=== PATIENT | female | born 1950 | race Caucasian/White ===

== ENCOUNTER → 2023-01-15 | Outpatient (CLI) | payer OTHER, MEDICAID ==
[~2023-01-15] MED LIST: ALLOPURINOL100 MG PO; ASPIR 8181 MG PO; CIPROFLOXACIN500 MG PO; COLCRYS0.6 MG PO; GLYBURIDE5 MG PO; INDOCIN25 MG PO; LANTUS100 U/ML SC; LISINOPRIL HCTZ1 TA1 PO; LISINOPRIL20 MG PO; MEDROL DOSEPAK4 MG PO; METFORMIN1000 MG PO; METOPROLOL SR25 MG PO; NAPROXEN500 MG PO; PRAVACHOL20 MG PO; PRILOSEC40 MG PO; RANITIDINE150 MG PO; ROBITUSSIN DM120 ML PO; ULTRAM50 MG PO; VICODIN 5/500 505 MG PO; ZITHROMAX Z PA250 MG PO
== END | disposition home or self-care (01) ==
LOC: US 07:19
PROVIDERS: ATTEND Internal Medicine Nephrology
DX: K74.60 Unspecified cirrhosis of liver (principal); R16.2 Hepatomegaly with splenomegaly, not elsewhere classified; R18.8 Other ascites; N18.30 Chronic kidney disease, stage 3 unspecified

== ENCOUNTER → 2023-02-26 | Outpatient (CLI) | payer OTHER, MEDICAID ==
[2023-02-26 14:33] LABS: MANUAL DIFF REFLEX YES
[2023-02-26 14:54] LABS: TOTAL PROTEIN 5.6 gm/dL (6.0-8.0)
[2023-02-26 15:37] LABS: HEMATOCRIT 28.5 % (37.0-47.0); MEAN CELL VOLUME 101.4 fl (81.0-99.0); MEAN CORPUSCULAR HGB CONC 31.6 g/dl (33.0-37.0); RED BLOOD COUNT 2.81 10*6/uL (4.10-5.10)
[2023-02-26 15:38] LABS: EOS % 0.1 % (1.0-4.0); LYMPH % 0.8 % (27.0-41.0); MEAN PLATELET VOLUME 12.6 fl (9.6-12.3); MONO % 0.3 % (3.0-9.0); NEUT % 2.8 % (47.0-73.0); PLATELET COUNT AUTOMATED 121 10*3/uL (130-400)
[2023-02-26 15:39] LABS: BASOPHILS 1 % (0-1); TOTAL CELLS COUNTED 100 #CELLS
[2023-02-26 15:40] LABS: PLATELET SUFFICIENCY LOW (NORMAL)
== END | disposition home or self-care (01) ==
LOC: LAB 13:38
PROVIDERS: ATTEND Nurse Practitioner Family
DX: E11.65 Type 2 diabetes mellitus with hyperglycemia (principal); R79.89 Other specified abnormal findings of blood chemistry; R53.81 Other malaise

== ENCOUNTER → 2023-03-27 | Outpatient (CLI) | payer OTHER, MEDICAID ==
[2023-03-27 15:32] LABS: BILIRUBIN Negative (Negative); BLOOD Negative (Negative); CLARITY Clear (Clear); COLOR Yellow (Yellow); GLUCOSE Negative (Negative); KETONE Negative (Negative); LEUKO ESTERASE 1+ (Negative); NITRITE Negative (Negative); SPECIFIC GRAVITY 1.015 (1.001-1.030)
[2023-03-27 15:33] LABS: BASO % 0.5 % (0.0-1.0); EOS # 0.1 10*3/uL (0.0-0.4); EOS % 3.7 % (1.0-4.0); HEMATOCRIT 28.6 % (37.0-47.0); LYMPH # 0.7 10*3/uL (1.3-4.4); LYMPH % 17.1 % (27.0-41.0); MEAN CELL VOLUME 101.4 fl (81.0-99.0); MEAN CORPUSCULAR HGB 31.6 pg (27.0-31.0); MEAN CORPUSCULAR HGB CONC 31.1 g/dl (33.0-37.0); MEAN PLATELET VOLUME 11.6 fl (9.6-12.3); MONO # 0.3 10*3/uL (0.1-1.0); MONO % 6.6 % (3.0-9.0); NEUT # 2.7 10*3/uL (2.3-7.9); NEUT % 70.8 % (47.0-73.0); PLATELET COUNT AUTOMATED 120 10*3/uL (130-400); RED BLOOD COUNT 2.82 10*6/uL (4.10-5.10); WHITE BLOOD COUNT 3.8 10*3/uL (4.8-10.8)
[2023-03-27 15:40] LABS: URINE CREATININE RANDOM 97.36 mg/dL
[2023-03-27 15:45] LABS: BACTERIA 2+; MUCOUS 1+; WBC 16-20 wbc/hpf (0-5)
[2023-03-27 15:56] LABS: POTASSIUM 4.3 mmol/L (3.4-5.1)
[2023-03-27 15:59] LABS: VITAMIN D, 25-HYDROXY 24.7 ng/mL (30-100)
== END | disposition home or self-care (01) ==
LOC: LAB 15:06
PROVIDERS: ATTEND Internal Medicine Nephrology
DX: E11.22 Type 2 diabetes mellitus with diabetic chronic kidney disease (principal); N18.30 Chronic kidney disease, stage 3 unspecified; N25.81 Secondary hyperparathyroidism of renal origin; D63.1 Anemia in chronic kidney disease; Z79.899 Other long term (current) drug therapy

== ENCOUNTER → 2023-07-24 | Outpatient (CLI) | payer OTHER, MEDICAID ==
[2023-07-24 09:55] LABS: BILIRUBIN Negative (Negative); BLOOD Negative (Negative); CLARITY Clear (Clear); COLOR Yellow (Yellow); GLUCOSE 2+ (Negative); KETONE Negative (Negative); LEUKO ESTERASE Negative (Negative); NITRITE Negative (Negative); PH 5.5 (4.5-8.0); SPECIFIC GRAVITY 1.015 (1.001-1.030); UROBILINOGEN 0.2 E.U./dl (0.0-1.0)
[2023-07-24 09:56] LABS: BASO % 0.8 % (0.0-1.0); EOS # 0.1 10*3/uL (0.0-0.4); EOS % 2.9 % (1.0-4.0); HEMATOCRIT 32.1 % (37.0-47.0); LYMPH # 0.5 10*3/uL (1.3-4.4); LYMPH % 13.9 % (27.0-41.0); MEAN CORPUSCULAR HGB CONC 30.5 g/dl (33.0-37.0); MEAN PLATELET VOLUME 11.5 fl (9.6-12.3); MONO # 0.3 10*3/uL (0.1-1.0); MONO % 7.9 % (3.0-9.0); NEUT # 2.8 10*3/uL (2.3-7.9); PLATELET COUNT AUTOMATED 117 10*3/uL (130-400); RED BLOOD COUNT 3.38 10*6/uL (4.10-5.10); WHITE BLOOD COUNT 3.8 10*3/uL (4.8-10.8)
[2023-07-24 10:02] LABS: BACTERIA 2+; HYALINE CAST 0-2; YEAST 1+
[2023-07-24 10:03] LABS: URINE CREATININE RANDOM 44.36 mg/dL
[2023-07-24 10:24] LABS: POTASSIUM 4.2 mmol/L (3.4-5.1)
[2023-07-24 10:38] LABS: VITAMIN D, 25-HYDROXY 86.5 ng/mL (30-100)
== END | disposition home or self-care (01) ==
LOC: LAB 09:18
PROVIDERS: ATTEND Nurse Practitioner Family
DX: E11.22 Type 2 diabetes mellitus with diabetic chronic kidney disease (principal); N18.30 Chronic kidney disease, stage 3 unspecified

== ENCOUNTER 2023-08-08 19:41 | Emergency (ER) | payer OTHER, MEDICAID ==
[~2023-08-08] VITALS: Ht 152.4 cm; Wt 68.5 kg
[~2023-08-08 19:41] MED LIST changes: +LANTUS SOL100 UNIT/1 SC; -LANTUS100 U/ML SC
[2023-08-08] MEDS ORDERED: ALDACTONE100 MG PO (20:45)
[2023-08-08] MEDS ORDERED: LASIX40 MG PO (20:45)
[2023-08-08] MEDS ORDERED: CARVEDILOL6.25 MG PO (20:45)
[2023-08-08] MEDS ORDERED: XIFAXAN550 MG PO (20:45)
[2023-08-08 20:55] LABS: BASO % 0.5 % (0.0-1.0); EOS # 0.1 10*3/uL (0.0-0.4); EOS % 1.9 % (1.0-4.0); HEMATOCRIT 31.9 % (37.0-47.0); LYMPH # 0.5 10*3/uL (1.3-4.4); LYMPH % 13.6 % (27.0-41.0); MEAN CELL VOLUME 93.8 fl (81.0-99.0); MEAN CORPUSCULAR HGB 29.1 pg (27.0-31.0); MEAN PLATELET VOLUME 12.8 fl (9.6-12.3); MONO # 0.3 10*3/uL (0.1-1.0); MONO % 8.2 % (3.0-9.0); NEUT # 2.8 10*3/uL (2.3-7.9); NEUT % 75.5 % (47.0-73.0); PLATELET COUNT AUTOMATED 128 10*3/uL (130-400); RED CELL DISTRI WIDTH 14.7 % (0-14.5); WHITE BLOOD COUNT 3.8 10*3/uL (4.8-10.8)
[2023-08-08 21:06] LABS: ACT PARTIAL THROMBO TIME 20.8 SECONDS (20.0-32.1)
[2023-08-08 21:23] LABS: POTASSIUM 4.7 mmol/L (3.4-5.1); TOTAL PROTEIN 7.7 gm/dL (6.0-8.0)
[2023-08-08 23:47] LABS: BILIRUBIN Negative (Negative); BLOOD Negative (Negative); CLARITY Clear (Clear); COLOR Yellow (Yellow); GLUCOSE 3+ (Negative); KETONE Negative (Negative); LEUKO ESTERASE Negative (Negative); NITRITE Negative (Negative); PH 5.5 (4.5-8.0); UROBILINOGEN 0.2 E.U./dl (0.0-1.0)
[2023-08-09 00:08] LABS: EPITHELIAL CELLS 21-30
[2023-08-09 00:09] LABS: BACTERIA TRACE; YEAST TRACE
== END 2023-08-08 23:57 | disposition home or self-care (01) ==
LOC: ED 19:41
PROVIDERS: Internal Medicine
DX: E11.65 Type 2 diabetes mellitus with hyperglycemia (principal); E78.00 Pure hypercholesterolemia, unspecified; K21.9 Gastro-esophageal reflux disease without esophagitis; I10 Essential (primary) hypertension; M10.9 Gout, unspecified; Z88.0 Allergy status to penicillin; Z88.5 Allergy status to narcotic agent; Z88.8 Allergy status to other drugs, medicaments and biological substances; Z90.710 Acquired absence of both cervix and uterus; Z98.890 Other specified postprocedural states

== ENCOUNTER → 2023-08-26 | Outpatient (CLI) | payer OTHER, MEDICAID ==
[~2023-08-26] MED LIST changes: +ALDACTONE100 MG PO; +CARVEDILOL6.25 MG PO; +LASIX40 MG PO; +XIFAXAN550 MG PO
[2023-08-26 11:23] LABS: URINE CREATININE RANDOM 47.26 mg/dL
[2023-08-26 11:30] LABS: BILIRUBIN Negative (Negative); BLOOD Negative (Negative); CLARITY Clear (Clear); COLOR Yellow (Yellow); GLUCOSE 3+ (Negative); KETONE Negative (Negative); LEUKO ESTERASE Negative (Negative); NITRITE Negative (Negative); PH 5.5 (4.5-8.0); SPECIFIC GRAVITY 1.015 (1.001-1.030); UROBILINOGEN 0.2 E.U./dl (0.0-1.0)
[2023-08-26 11:35] LABS: BASO % 0.8 % (0.0-1.0); EOS # 0.1 10*3/uL (0.0-0.4); EOS % 3.6 % (1.0-4.0); HEMATOCRIT 32.1 % (37.0-47.0); LYMPH # 0.6 10*3/uL (1.3-4.4); LYMPH % 16.2 % (27.0-41.0); MEAN CELL VOLUME 94.4 fl (81.0-99.0); MEAN CORPUSCULAR HGB 28.8 pg (27.0-31.0); MEAN CORPUSCULAR HGB CONC 30.5 g/dl (33.0-37.0); MEAN PLATELET VOLUME 12.8 fl (9.6-12.3); MONO # 0.3 10*3/uL (0.1-1.0); MONO % 7.8 % (3.0-9.0); NEUT # 2.6 10*3/uL (2.3-7.9); NEUT % 71.3 % (47.0-73.0); PLATELET COUNT AUTOMATED 71 10*3/uL (130-400); RED CELL DISTRI WIDTH 14.4 % (0-14.5); WHITE BLOOD COUNT 3.6 10*3/uL (4.8-10.8)
[2023-08-26 11:39] LABS: BACTERIA 1+; MUCOUS TRACE; YEAST 2+
[2023-08-26 11:48] LABS: POTASSIUM 4.8 mmol/L (3.4-5.1)
[2023-08-26 12:05] LABS: VITAMIN D, 25-HYDROXY 78.1 ng/mL (30-100)
== END | disposition home or self-care (01) ==
LOC: LAB 10:31
PROVIDERS: ATTEND Internal Medicine Nephrology
DX: E11.9 Type 2 diabetes mellitus without complications (principal); N17.9 Acute kidney failure, unspecified; E03.9 Hypothyroidism, unspecified

== ENCOUNTER → 2023-09-16 | Outpatient (CLI) | payer OTHER, MEDICAID ==
[2023-09-16 07:23] LABS: BASO % 0.5 % (0.0-1.0); EOS # 0.2 10*3/uL (0.0-0.4); EOS % 3.8 % (1.0-4.0); HEMATOCRIT 33.5 % (37.0-47.0); LYMPH # 0.6 10*3/uL (1.3-4.4); LYMPH % 15.1 % (27.0-41.0); MEAN CELL VOLUME 93.3 fl (81.0-99.0); MEAN PLATELET VOLUME 10.9 fl (9.6-12.3); MONO # 0.3 10*3/uL (0.1-1.0); MONO % 6.8 % (3.0-9.0); NEUT # 3.1 10*3/uL (2.3-7.9); NEUT % 73.6 % (47.0-73.0); PLATELET COUNT AUTOMATED 96 10*3/uL (130-400); RED BLOOD COUNT 3.59 10*6/uL (4.10-5.10); RED CELL DISTRI WIDTH 15.1 % (0-14.5); WHITE BLOOD COUNT 4.3 10*3/uL (4.8-10.8)
[2023-09-16 08:00] LABS: POTASSIUM 4.6 mmol/L (3.4-5.1); TOTAL PROTEIN 7.2 gm/dL (6.0-8.0)
== END | disposition home or self-care (01) ==
LOC: LAB 07:03
PROVIDERS: ATTEND Nurse Practitioner Family
DX: E11.65 Type 2 diabetes mellitus with hyperglycemia (principal); Z23 Encounter for immunization; E66.9 Obesity, unspecified; K76.0 Fatty (change of) liver, not elsewhere classified; Z79.4 Long term (current) use of insulin

== ENCOUNTER → 2023-09-25 | Outpatient (CLI) | payer OTHER, MEDICAID ==
[2023-09-25 15:10] LABS: EOS # 0.1 10*3/uL (0.0-0.4); EOS % 3.6 % (1.0-4.0); HEMATOCRIT 33.1 % (37.0-47.0); LYMPH # 0.7 10*3/uL (1.3-4.4); LYMPH % 17.8 % (27.0-41.0); MEAN CELL VOLUME 95.9 fl (81.0-99.0); MEAN CORPUSCULAR HGB CONC 30.2 g/dl (33.0-37.0); MEAN PLATELET VOLUME 10.2 fl (9.6-12.3); MONO # 0.4 10*3/uL (0.1-1.0); MONO % 9.4 % (3.0-9.0); NEUT # 2.7 10*3/uL (2.3-7.9); NEUT % 67.9 % (47.0-73.0); PLATELET COUNT AUTOMATED 97 10*3/uL (130-400); RED BLOOD COUNT 3.45 10*6/uL (4.10-5.10); RED CELL DISTRI WIDTH 15.8 % (0-14.5); WHITE BLOOD COUNT 3.9 10*3/uL (4.8-10.8)
[2023-09-25 15:33] LABS: POTASSIUM 5.3 mmol/L (3.4-5.1); TOTAL PROTEIN 7.1 gm/dL (6.0-8.0); URIC ACID 10.8 mg/dL (3.1-7.8)
== END ==
LOC: LAB 14:48
PROVIDERS: ATTEND Nurse Practitioner Family
DX: E11.65 Type 2 diabetes mellitus with hyperglycemia (principal); E66.9 Obesity, unspecified; K76.0 Fatty (change of) liver, not elsewhere classified; Z74.9 Problem related to care provider dependency, unspecified; Z87.39 Personal history of other diseases of the musculoskeletal system and connective tissue

== ENCOUNTER → 2023-10-21 | Outpatient (CLI) | payer OTHER, MEDICAID | END | disposition home or self-care (01) | LOC: LAB 11:32 | PROVIDERS: ATTEND Nurse Practitioner Family | DX: E11.65 Type 2 diabetes mellitus with hyperglycemia (principal); K76.0 Fatty (change of) liver, not elsewhere classified; M10.9 Gout, unspecified ==

== ENCOUNTER → 2023-11-13 | Outpatient (CLI) | payer OTHER, MEDICAID ==
[2023-11-13 12:25] LABS: BASO % 0.5 % (0.0-1.0); EOS # 0.1 10*3/uL (0.0-0.4); EOS % 2.2 % (1.0-4.0); HEMATOCRIT 32.8 % (37.0-47.0); LYMPH # 0.7 10*3/uL (1.3-4.4); LYMPH % 20.1 % (27.0-41.0); MEAN CELL VOLUME 99.1 fl (81.0-99.0); MEAN CORPUSCULAR HGB 31.1 pg (27.0-31.0); MEAN CORPUSCULAR HGB CONC 31.4 g/dl (33.0-37.0); MONO # 0.3 10*3/uL (0.1-1.0); MONO % 8.4 % (3.0-9.0); NEUT # 2.5 10*3/uL (2.3-7.9); NEUT % 68.5 % (47.0-73.0); PLATELET COUNT AUTOMATED 79 10*3/uL (130-400); RED BLOOD COUNT 3.31 10*6/uL (4.10-5.10); RED CELL DISTRI WIDTH 17.1 % (0-14.5); WHITE BLOOD COUNT 3.7 10*3/uL (4.8-10.8)
[2023-11-13 12:48] LABS: POTASSIUM 5.5 mmol/L (3.4-5.1)
[2023-11-13 12:50] LABS: URINE CREATININE RANDOM 51.67 mg/dL
[2023-11-13 12:56] LABS: VITAMIN D, 25-HYDROXY 62.3 ng/mL (30-100)
[2023-11-13 14:33] LABS: BILIRUBIN Negative (Negative); BLOOD Negative (Negative); CLARITY Clear (Clear); COLOR Yellow (Yellow); GLUCOSE Negative (Negative); KETONE Negative (Negative); NITRITE Negative (Negative); UROBILINOGEN 0.2 E.U./dl (0.0-1.0)
[2023-11-13 14:34] LABS: LEUKO ESTERASE Negative (Negative)
[2023-11-13 15:01] LABS: BACTERIA 1+; HYALINE CAST 0-2; YEAST 1+
== END | disposition home or self-care (01) ==
LOC: RAD 11:32
PROVIDERS: ATTEND Nurse Practitioner Family
DX: E11.22 Type 2 diabetes mellitus with diabetic chronic kidney disease (principal); N18.30 Chronic kidney disease, stage 3 unspecified; E55.9 Vitamin D deficiency, unspecified; D63.1 Anemia in chronic kidney disease; N25.81 Secondary hyperparathyroidism of renal origin; E11.65 Type 2 diabetes mellitus with hyperglycemia; R07.89 Other chest pain; E66.9 Obesity, unspecified; K74.60 Unspecified cirrhosis of liver; R91.8 Other nonspecific abnormal finding of lung field

== ENCOUNTER → 2024-02-27 | Outpatient (CLI) | payer OTHER, MEDICAID ==
[~2024-02-27] MED LIST changes: +ALDACTONE25 M1 PO; +ALLOPURINOL200 MG PO; +NOVOLIN R100 UNIT/1 SQ; +VITAMIN D350 MCG PO
[2024-02-27 11:06] LABS: HEMATOCRIT 36.6 % (37.0-47.0); MEAN CELL VOLUME 108.3 fl (81.0-99.0); MEAN CORPUSCULAR HGB 34.6 pg (27.0-31.0); MEAN PLATELET VOLUME 11.3 fl (9.6-12.3); PLATELET COUNT AUTOMATED 72 10*3/uL (130-400); RED BLOOD COUNT 3.38 10*6/uL (4.10-5.10); RED CELL DISTRI WIDTH 15.6 % (0-14.5); WHITE BLOOD COUNT 3.4 10*3/uL (4.8-10.8)
[2024-02-27 11:08] LABS: MANUAL DIFF REFLEX YES
[2024-02-27 11:16] LABS: URINE CREATININE RANDOM 42.5 mg/dL
[2024-02-27 11:18] LABS: BILIRUBIN Negative (Negative); BLOOD Negative (Negative); CLARITY Clear (Clear); COLOR Yellow (Yellow); GLUCOSE Negative (Negative); KETONE Negative (Negative); LEUKO ESTERASE Trace (Negative); NITRITE Negative (Negative)
[2024-02-27 11:26] LABS: BURR CELLS FEW; OVALOCYTES FEW; PLATELET SUFFICIENCY LOW (NORMAL); POLYCHROMASIA SLIGHT; ROULEAUX SLIGHT; TOTAL CELLS COUNTED 100 #CELLS
[2024-02-27 11:27] LABS: POTASSIUM 5.8 mmol/L (3.4-5.1)
[2024-02-27 11:51] LABS: EPITHELIAL CELLS 41-50
[2024-02-27 12:01] LABS: VITAMIN D, 25-HYDROXY 52.6 ng/mL (30-100)
== END | disposition home or self-care (01) ==
LOC: LAB 10:35
PROVIDERS: ATTEND Nurse Practitioner Family
DX: N18.30 Chronic kidney disease, stage 3 unspecified (principal); E55.9 Vitamin D deficiency, unspecified; D63.1 Anemia in chronic kidney disease; N25.81 Secondary hyperparathyroidism of renal origin

== ENCOUNTER → 2024-04-16 | Outpatient (CLI) | payer OTHER, MEDICAID ==
[~2024-04-16] MED LIST changes: +Regadenoson 0.4 MG/5 ML SYR IV ONE; +Technetium Tc 99M Tetrofosmi 0.23 MG KIT IJ SCH; +WOMEN'S DAILY1 EAC3 PO
[2024-04-16 07:20] LABS: MEAN CELL VOLUME 109.8 fl (81.0-99.0); MEAN CORPUSCULAR HGB 35.4 pg (27.0-31.0); MEAN CORPUSCULAR HGB CONC 32.2 g/dl (33.0-37.0); MEAN PLATELET VOLUME 10.7 fl (9.6-12.3); PLATELET COUNT AUTOMATED 80 10*3/uL (130-400); RED BLOOD COUNT 3.28 10*6/uL (4.10-5.10); RED CELL DISTRI WIDTH 15.3 % (0-14.5); WHITE BLOOD COUNT 4.2 10*3/uL (4.8-10.8)
[2024-04-16 07:21] LABS: BILIRUBIN Negative (Negative); BLOOD Negative (Negative); CLARITY Clear (Clear); COLOR Yellow (Yellow); GLUCOSE Negative (Negative); KETONE Negative (Negative); LEUKO ESTERASE Trace (Negative); NITRITE Negative (Negative); UROBILINOGEN 0.2 E.U./dl (0.0-1.0)
[2024-04-16 07:27] LABS: MANUAL DIFF REFLEX YES
[2024-04-16 07:28] LABS: URINE CREATININE RANDOM 53.86 mg/dL
[2024-04-16 07:45] LABS: POTASSIUM 5.9 mmol/L (3.4-5.1)
[2024-04-16 07:53] LABS: BASOPHILS 2 % (0-1); PLATELET SUFFICIENCY LOW (NORMAL); POLYCHROMASIA SLIGHT; TOTAL CELLS COUNTED 100 #CELLS
[2024-04-16 07:54] LABS: OVALOCYTES FEW
[2024-04-16 10:01] LABS: BACTERIA 2+; YEAST 2+
== END | disposition home or self-care (01) ==
LOC: CARD 01:54 → LAB 01:54 → CARD 07:30
PROVIDERS: Nurse Practitioner Family; ATTEND Internal Medicine Cardiovascular Disease
DX: R07.9 Chest pain, unspecified (principal); E11.22 Type 2 diabetes mellitus with diabetic chronic kidney disease; Z79.4 Long term (current) use of insulin; N18.9 Chronic kidney disease, unspecified

== ENCOUNTER → 2024-04-20 | Outpatient (CLI) | payer OTHER, MEDICAID ==
[~2024-04-20] MED LIST changes: -Regadenoson 0.4 MG/5 ML SYR IV ONE; -Technetium Tc 99M Tetrofosmi 0.23 MG KIT IJ SCH
== END | disposition home or self-care (01) ==
LOC: CARD 10:17
PROVIDERS: ATTEND Internal Medicine Cardiovascular Disease
DX: I08.8 Other rheumatic multiple valve diseases (principal); I12.9 Hypertensive chronic kidney disease with stage 1 through stage 4 chronic kidney disease, or unspecified chronic kidney disease; E11.22 Type 2 diabetes mellitus with diabetic chronic kidney disease; N18.9 Chronic kidney disease, unspecified; R07.89 Other chest pain; R60.0 Localized edema

== ENCOUNTER → 2024-05-19 | Outpatient (CLI) | payer OTHER, MEDICAID ==
[2024-05-19 11:11] LABS: POTASSIUM 4.4 mmol/L (3.4-5.1)
[2024-05-19 12:53] LABS: BILIRUBIN Negative (Negative); BLOOD Negative (Negative); CLARITY Clear (Clear); COLOR Yellow (Yellow); GLUCOSE Negative (Negative); KETONE Negative (Negative); LEUKO ESTERASE 1+ (Negative); NITRITE Negative (Negative); SPECIFIC GRAVITY 1.015 (1.001-1.030); UROBILINOGEN 0.2 E.U./dl (0.0-1.0)
[2024-05-19 13:00] LABS: URINE CREATININE RANDOM 77.95 mg/dL
[2024-05-19 13:39] LABS: RBC 0-2 rbc/hpf (0-2); YEAST TRACE
== END | disposition home or self-care (01) ==
LOC: LAB 10:10
PROVIDERS: ATTEND Nurse Practitioner Family
DX: N18.30 Chronic kidney disease, stage 3 unspecified (principal); Z79.899 Other long term (current) drug therapy

== ENCOUNTER → 2024-05-26 | Outpatient (CLI) | payer OTHER, MEDICAID ==
[2024-05-26 12:36] LABS: BILIRUBIN Negative (Negative); BLOOD Negative (Negative); CLARITY Clear (Clear); COLOR Yellow (Yellow); GLUCOSE 2+ (Negative); KETONE Negative (Negative); LEUKO ESTERASE Trace (Negative); NITRITE Negative (Negative); UROBILINOGEN 0.2 E.U./dl (0.0-1.0)
[2024-05-26 12:37] LABS: URINE CREATININE RANDOM 34.26 mg/dL
[2024-05-26 12:46] LABS: BACTERIA TRACE; YEAST TRACE
[2024-05-26 13:03] LABS: POTASSIUM 4.5 mmol/L (3.4-5.1)
== END | disposition home or self-care (01) ==
LOC: LAB 12:00
PROVIDERS: ATTEND Nurse Practitioner Family
DX: N18.30 Chronic kidney disease, stage 3 unspecified (principal)

== ENCOUNTER → 2024-07-09 | Outpatient (CLI) | payer OTHER, MEDICAID ==
[~2024-07-09] MED LIST changes: +OZEMPIC0.25 MG/03 SQ
[2024-07-09 10:16] LABS: POTASSIUM 4.5 mmol/L (3.4-5.1); TOTAL PROTEIN 6.6 gm/dL (6.0-8.0)
== END | disposition home or self-care (01) ==
LOC: LAB 09:05
PROVIDERS: ATTEND Internal Medicine Endocrinology, Diabetes & Metabolism
DX: E11.65 Type 2 diabetes mellitus with hyperglycemia (principal)

== ENCOUNTER → 2024-09-08 | Outpatient (CLI) | payer OTHER, MEDICAID ==
[2024-09-08 17:23] LABS: BASO % 0.3 % (0.0-1.0); EOS # 0.1 10*3/uL (0.0-0.4); EOS % 4.4 % (1.0-4.0); HEMATOCRIT 33.9 % (37.0-47.0); MEAN CELL VOLUME 101.8 fl (81.0-99.0); MEAN CORPUSCULAR HGB CONC 32.4 g/dl (33.0-37.0); MEAN PLATELET VOLUME 12.7 fl (9.6-12.3); MONO # 0.2 10*3/uL (0.1-1.0); MONO % 8.1 % (3.0-9.0); NEUT # 2.1 10*3/uL (2.3-7.9); NEUT % 70.8 % (47.0-73.0); PLATELET COUNT AUTOMATED 70 10*3/uL (130-400); RED BLOOD COUNT 3.33 10*6/uL (4.10-5.10); RED CELL DISTRI WIDTH 14.2 % (0-14.5)
[2024-09-08 17:24] LABS: POTASSIUM 4.2 mmol/L (3.4-5.1); TOTAL PROTEIN 6.8 gm/dL (6.0-8.0)
== END | disposition home or self-care (01) ==
LOC: ZRHCWE 16:50
PROVIDERS: ATTEND Nurse Practitioner Family
DX: I10 Essential (primary) hypertension (principal); E11.65 Type 2 diabetes mellitus with hyperglycemia; K76.0 Fatty (change of) liver, not elsewhere classified

== ENCOUNTER → 2024-09-14 | Outpatient (CLI) | payer OTHER, MEDICAID ==
[2024-09-14 12:10] LABS: BASO % 0.6 % (0.0-1.0); EOS # 0.1 10*3/uL (0.0-0.4); EOS % 4.3 % (1.0-4.0); HEMATOCRIT 36.2 % (37.0-47.0); MEAN CELL VOLUME 104.3 fl (81.0-99.0); MEAN CORPUSCULAR HGB 32.6 pg (27.0-31.0); MEAN CORPUSCULAR HGB CONC 31.2 g/dl (33.0-37.0); MEAN PLATELET VOLUME 11.4 fl (9.6-12.3); MONO # 0.3 10*3/uL (0.1-1.0); MONO % 7.7 % (3.0-9.0); NEUT # 2.2 10*3/uL (2.3-7.9); NEUT % 68.8 % (47.0-73.0); PLATELET COUNT AUTOMATED 73 10*3/uL (130-400); RED BLOOD COUNT 3.47 10*6/uL (4.10-5.10); RED CELL DISTRI WIDTH 14.4 % (0-14.5); WHITE BLOOD COUNT 3.2 10*3/uL (4.8-10.8)
[2024-09-14 12:32] LABS: POTASSIUM 3.9 mmol/L (3.4-5.1)
[2024-09-14 12:40] LABS: VITAMIN D, 25-HYDROXY 48.7 ng/mL (30-100)
[2024-09-14 13:45] LABS: BILIRUBIN Negative (Negative); BLOOD Negative (Negative); CLARITY Clear (Clear); COLOR Yellow (Yellow); GLUCOSE Negative (Negative); KETONE Negative (Negative); LEUKO ESTERASE 2+ (Negative); NITRITE Negative (Negative); PH 5.5 (4.5-8.0); SPECIFIC GRAVITY 1.015 (1.001-1.030)
[2024-09-14 13:54] LABS: BACTERIA 2+; HYALINE CAST 0-2
[2024-09-14 13:55] LABS: YEAST 1+
== END | disposition home or self-care (01) ==
LOC: LAB 11:29
PROVIDERS: Nurse Practitioner Family; ATTEND Family Medicine
DX: E11.22 Type 2 diabetes mellitus with diabetic chronic kidney disease (principal); N18.30 Chronic kidney disease, stage 3 unspecified; E55.9 Vitamin D deficiency, unspecified; N25.81 Secondary hyperparathyroidism of renal origin; D63.1 Anemia in chronic kidney disease; Z79.899 Other long term (current) drug therapy

== ENCOUNTER → 2024-10-14 | Outpatient (CLI) | payer OTHER, MEDICAID ==
[2024-10-14 13:02] LABS: POTASSIUM 4.3 mmol/L (3.4-5.1); TOTAL PROTEIN 6.8 gm/dL (6.0-8.0)
== END | disposition home or self-care (01) ==
LOC: LAB 11:40
PROVIDERS: Student in an Organized Health Care Education/Training Program; ATTEND Family Medicine
DX: E11.65 Type 2 diabetes mellitus with hyperglycemia (principal)

== ENCOUNTER → 2025-01-11 | Outpatient (CLI) | payer OTHER, MEDICAID ==
[2025-01-11 09:51] LABS: POTASSIUM 3.9 mmol/L (3.4-5.1); TOTAL PROTEIN 6.1 gm/dL (6.0-8.0)
== END | disposition home or self-care (01) ==
LOC: LAB 08:36
PROVIDERS: Student in an Organized Health Care Education/Training Program; ATTEND Internal Medicine Endocrinology, Diabetes & Metabolism
DX: E11.65 Type 2 diabetes mellitus with hyperglycemia (principal)

== ENCOUNTER → 2025-01-14 | Outpatient (CLI) | payer OTHER, MEDICAID | END | disposition home or self-care (01) | LOC: RAD 13:59 | PROVIDERS: ATTEND Nurse Practitioner Family | DX: M75.81 Other shoulder lesions, right shoulder (principal); M25.511 Pain in right shoulder; Z00.00 Encounter for general adult medical examination without abnormal findings ==

== ENCOUNTER → 2025-02-01 | Outpatient (CLI) | payer OTHER, MEDICAID ==
[2025-02-01 10:23] LABS: BILIRUBIN Negative (Negative); BLOOD Negative (Negative); CLARITY Clear (Clear); COLOR Yellow (Yellow); GLUCOSE Negative (Negative); KETONE Negative (Negative); LEUKO ESTERASE Trace (Negative); NITRITE Negative (Negative); PH 5.5 (4.5-8.0); SPECIFIC GRAVITY 1.015 (1.001-1.030)
[2025-02-01 10:45] LABS: BASO % 0.5 % (0.0-1.0); EOS # 0.1 10*3/uL (0.0-0.4); EOS % 3.8 % (1.0-4.0); HEMATOCRIT 36.5 % (37.0-47.0); MEAN CELL VOLUME 101.7 fl (81.0-99.0); MEAN CORPUSCULAR HGB 33.1 pg (27.0-31.0); MEAN CORPUSCULAR HGB CONC 32.6 g/dl (33.0-37.0); MEAN PLATELET VOLUME 12.6 fl (9.6-12.3); MONO # 0.3 10*3/uL (0.1-1.0); MONO % 9.2 % (3.0-9.0); NEUT # 2.6 10*3/uL (2.3-7.9); PLATELET COUNT AUTOMATED 61 10*3/uL (130-400); RED BLOOD COUNT 3.59 10*6/uL (4.10-5.10); RED CELL DISTRI WIDTH 14.2 % (0-14.5); WHITE BLOOD COUNT 3.7 10*3/uL (4.8-10.8)
[2025-02-01 10:48] LABS: POTASSIUM 4.1 mmol/L (3.4-5.1)
[2025-02-01 11:24] LABS: VITAMIN D, 25-HYDROXY 35.8 ng/mL (30-100)
[2025-02-01 11:57] LABS: BACTERIA 1+; RBC 0-2 rbc/hpf (0-2)
== END | disposition home or self-care (01) ==
LOC: LAB 09:47
PROVIDERS: ATTEND Nurse Practitioner Family
DX: E11.22 Type 2 diabetes mellitus with diabetic chronic kidney disease (principal); N18.4 Chronic kidney disease, stage 4 (severe); E55.9 Vitamin D deficiency, unspecified; D63.1 Anemia in chronic kidney disease; N25.81 Secondary hyperparathyroidism of renal origin

== ENCOUNTER → 2025-04-16 | Outpatient (CLI) | payer OTHER, MEDICAID ==
[2025-04-16 07:51] LABS: BASO # 0.0 10*3/uL (0.0-0.1); BASO % 0.4 % (0.0-1.0); EOS # 0.1 10*3/uL (0.0-0.4); EOS % 3.7 % (1.0-4.0); MEAN CELL VOLUME 105.3 fl (81.0-99.0); MEAN CORPUSCULAR HGB 33.5 pg (27.0-31.0); MEAN PLATELET VOLUME 10.5 fl (9.6-12.3); MONO # 0.3 10*3/uL (0.1-1.0); MONO % 10.2 % (3.0-9.0); NEUT # 1.5 10*3/uL (2.3-7.9); NEUT % 60.5 % (47.0-73.0); NUCLEATED RED BLOOD CELL 0.0 % (0.0-0.0); NUCLEATED RED BLOOD CELL 0.0 10*3/uL (0.0-0.0); PLATELET COUNT AUTOMATED 56 10*3/uL (130-400); RED CELL DISTRI WIDTH 15.1 % (0-14.5)
[2025-04-16 08:52] LABS: BUN 35.0 mg/dl (9-23); SGPT/ALT 31.0 U/L (5-49)
== END | disposition home or self-care (01) ==
LOC: LAB 07:34
PROVIDERS: ATTEND Nurse Practitioner Family
DX: I12.9 Hypertensive chronic kidney disease with stage 1 through stage 4 chronic kidney disease, or unspecified chronic kidney disease (principal); N18.9 Chronic kidney disease, unspecified; E11.65 Type 2 diabetes mellitus with hyperglycemia; K76.0 Fatty (change of) liver, not elsewhere classified; D63.1 Anemia in chronic kidney disease

== ENCOUNTER → 2025-06-03 | Outpatient (CLI) | payer OTHER, MEDICAID ==
[2025-06-03 12:40] LABS: BILIRUBIN Negative (Negative); BLOOD Negative (Negative); CLARITY Clear (Clear); COLOR Yellow (Yellow); KETONE Negative (Negative); LEUKO ESTERASE Trace (Negative); NITRITE Negative (Negative); PH 5.5 (4.5-8.0); SPECIFIC GRAVITY 1.015 (1.001-1.030); UROBILINOGEN 0.2 E.U./dl (0.0-1.0)
[2025-06-03 12:42] LABS: BASO # 0.0 10*3/uL (0.0-0.1); BASO % 0.9 % (0.0-1.0); EOS # 0.1 10*3/uL (0.0-0.4); EOS % 4.2 % (1.0-4.0); MEAN CELL VOLUME 107.8 fl (81.0-99.0); MEAN CORPUSCULAR HGB 34.9 pg (27.0-31.0); MEAN PLATELET VOLUME 12.0 fl (9.6-12.3); MONO # 0.2 10*3/uL (0.1-1.0); MONO % 9.4 % (3.0-9.0); NEUT # 1.3 10*3/uL (2.3-7.9); NEUT % 60.6 % (47.0-73.0); NUCLEATED RED BLOOD CELL 0.0 % (0.0-0.0); NUCLEATED RED BLOOD CELL 0.0 10*3/uL (0.0-0.0); PLATELET COUNT AUTOMATED 51 10*3/uL (130-400); RED CELL DISTRI WIDTH 14.4 % (0-14.5)
[2025-06-03 13:04] LABS: BACTERIA 1+
[2025-06-03 14:01] LABS: BUN 33.0 mg/dl (9-23)
[2025-06-03 14:04] LABS: VITAMIN D, 25-HYDROXY 29.1 ng/mL (30-100)
== END | disposition home or self-care (01) ==
LOC: LAB 12:09
PROVIDERS: ATTEND Nurse Practitioner Family
DX: N18.30 Chronic kidney disease, stage 3 unspecified (principal); E55.9 Vitamin D deficiency, unspecified; D63.1 Anemia in chronic kidney disease; Z79.899 Other long term (current) drug therapy